=== PATIENT | female | born 1960 | race Caucasian/White ===

== ENCOUNTER 2024-03-30 16:26 | Emergency (ER) | payer OTHER, SELFPAY ==
[2024-03-30 16:47] VITALS: BP 158/78; PULSE 65; TEMP 36.8; O2SAT 98; BMI 20.6
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
[2024-03-30] MEDS: ONDANSETRON 4 MG RAPDIS TABLET SL (18:11)
[2024-03-30] MEDS: MECLIZINE HCL 12.5 MG TABLET 25 MG PO (18:11)
[2024-03-30] MEDS: KETOROLAC TROMETHAMINE 60 MG/2 ML VIAL IM (18:11)
[2024-03-30] MEDS: ORPHENADRINE 60 MG/ 2 ML VIAL IM (18:12)
[2024-03-30 18:41] VITALS: BP 150/74; PULSE 66; O2SAT 100
== END 2024-03-30 18:43 | disposition home or self-care (01) ==
PROVIDERS: Emergency Provider Student in an Organized Health Care Education/Training Program; PCP Family Medicine
DX: S13.4XXA Sprain of ligaments of cervical spine, initial encounter (principal); V49.49XA Driver injured in collision with other motor vehicles in traffic accident, initial encounter; R42 Dizziness and giddiness
CPT/HCPCS: 70450; 72125; 73030; 96372; 99285; J1885; J2360; Q0162